=== PATIENT | male | born 1980 | race Caucasian/White ===

== ENCOUNTER 2025-01-05 18:40 | Emergency (ER) | payer OTHER, SELFPAY ==
[2025-01-05 18:42] VITALS: BP 134/94
[2025-01-05 19:06] VITALS: BMI 34.7
--- NOTE | 2025-01-05 19:08 | ED.GENMED ---
History of Present Illness
General
Chief Complaint: Abdominal Pain
Source: patient
Exam Limitations: none
Time Seen by Provider: 01/05/25 18:56
Nursing documentation reviewed up to this point in time: agreed with
History of Present Illness
History of Present Illness:
44-year-old male with history of hypertension presents to the ER for evaluation of abdominal pain. Patient reports symptoms have been ongoing for a little over a week but much worse over the past day or 2. He reports pain in the periumbilical
region radiates diffusely. No clear triggering or relieving factors noted. Describes the pain as cramping in quality. He has some mild nausea but no vomiting. Denies any diarrhea or constipation. Denies any urinary symptoms. Denies fever or
chills. He denies similar symptoms in the past. He denies any alcohol use.
Review of Systems
Review of Systems
All Other Systems: ROS reviewed and negative except as documented in HPI and ROS
Constitutional: Denies fever or chills
Respiratory: Denies trouble breathing
Cardiac: Denies chest pain
ABD/GI: Reports abdominal pain and nausea; Denies vomiting, diarrhea or constipated
: Denies dysuria, frequency or flank pain
Musculoskeletal: Denies neck pain or back pain
Neurological: Denies dizzy or headache
Phy Exam
Physical Exam
Physical Exam:
General: Awake, alert, oriented x3; no acute distress
Head: Normocephalic, atraumatic
Eyes: Conjunctiva normal, sclera anicteric
Throat: Airway intact, handling secretions
Neck: Trachea midline, supple without meningismus
Lungs: Clear to auscultation bilaterally, no wheezing, rales, rhonchi
Heart: Regular rate and rhythm, no murmurs, gallops, or rubs
Abd: Soft, non distended, tender to palpation in the periumbilical region with no palpable masses
Neuro: Grossly intact, ambulatory
Skin: no rash in area of concern
Extremities: Warm well-perfused
Scores
Heart Failure Risk
Heart Failure Risk Score: Not Applicable
Heart Score for Chest Pain Patients
STEMI patient?: Not applicable
Withdrawal Assessment of Alcohol
Withdrawal Assessment Completed?: Not applicable
Course
Orders/Labs/Results
Orders:
Orders
01/05/25 18:56
Electrocardiogram (*1) Urgent
Reason for Study: Abdominal Pain
EKG- Treatment ONCE
01/05/25 19:07
CT Abd/pelvis W Iv Cont Urgent
Comment:
Reason For Exam: periumbilical abd pain and tenderness
01/05/25 19:08
Complete Blood Count/With Diff Urgent
Comprehensive Metabolic Panel Urgent
Lipase Urgent
Urinalysis Reflex To Culture Urgent
Date Specimen was Collected: 01/05/25
Time Specimen was Collected: 19:07
0.9% Sodium Chloride 500 ml [Nss] 500 ml IV BOLUS
Ketorolac [Toradol] 15 mg IV NOW STA
01/05/25 21:57
Pantoprazole [Protonix IV] 40 mg IV NOW STA
01/05/25 21:59
Mag Hydrox/Al Hydrox/Simeth [Maalox] 30 ml Phenobarb/Hyoscy/Atropine/Scop [] 10 ml Viscous Lidocaine 2% [Xylocaine Viscous Cup] 10 ml PO NOW
Abnormal Lab Results
01/05/25
19:08
Neutrophils % 77.1 H %
(42.2-75.2)
Lymphocytes % 15.1 L %
(20.5-51.1)
ALT 78 H U/L
(0-50)
Total Protein 8.6 H g/dl
(6.3-8.2)
Albumin 5.4 H g/dl
(3.5-5.0)
01/05/25 19:08
01/05/25 19:08
Vital Signs
Initial and Last Documented VS:
Initial Vital Signs
Temp Pulse Resp BP Pulse Ox
37.5 C 122 18 134/94 98
01/05/25 18:42 01/05/25 18:42 01/05/25 18:42 01/05/25 18:42 01/05/25 18:42
Last Documented Vital Signs
Temp Pulse Resp BP Pulse Ox
37.5 C 83 21 123/79 97
01/05/25 18:42 01/05/25 21:00 01/05/25 21:00 01/05/25 21:00 01/05/25 21:00
MDM/Problems Addressed
Differential Diagnosis Includes:
Gastritis/PUD, diverticulitis, bowel obstruction, pancreatitis, cholelithiasis/cholecystitis, appendicitis, UTI/nephrolithiasis
MDM/Problems Addressed:
44-year-old male presents for evaluation of abdominal pain as described above. Tachycardic but otherwise normal vitals. Physical exam as noted. Will check labs including a CBC and a CMP, lipase, urinalysis. Check CT abdomen pelvis. Fluids and
pain control. Reassess after the above.
Labs reviewed: CBC unremarkable, CMP no clinically significant abnormalities. Urinalysis bland. CT shows no acute abnormalities�there was constipation but patient reports normal bowel movements low suspicion that symptoms are from constipation.
Suspect this may be PUD. Plan to trial PPI and Carafate. Advised regarding dietary adjustments. Stable for discharge with GI referral. Patient comfortable with this plan. All questions answered.
*Radiology
Radiology exam reviewed: radiology read reviewed
*Pulse Oximetry
SaO2: 98
Oxygen Mode of Delivery: Room air
Patient hypoxic: no (98%)
*EKG
Interpreted by ED Provider?: Yes
Heart Rate: 103
Rate: tachycardiac
Rhythm: sinus
[place]: normal axis
Interval: normal interval and normal QT interval
QRS Pattern: normal QRS
Ischemia: no ischemia
*Critical Care Note
Total Time (30-74mins, 75-104mins- exclusive of procedures): Not Applicable
Data Reviewed
Source: patient
ED Attending Note
-
Portions of this chart may have been created with voice recognition software.� Occasional wrong word or��sound alike� substitutions may have occurred due to the inherent limitations of voice recognition software.
Discharge Plan
Departure
Patient Disposition: Home (Routine Discharge)
Date of Disposition: 01/05/25
Time of Disposition: 21:57
Patient with high blood pressure during this ER visit?: Yes
Discharge Problem:
Abdominal pain
Instructions: Peptic ulcers
Prescriptions:
New
pantoprazole 40 mg tablet,delayed release (DR/EC)
40 mg PO DAILY Qty: 30 0RF
sucralfate [Carafate] 1 gram tablet
1 g PO ACHS Qty: 60 0RF
Referrals:
Nicolas Matos MD [Active, Gastroenterology] - Call in 1-3 days for appt
Activity Restrictions/Additional Instructions:
Thank you for visiting the Emergency Department at [facility].
1. Please schedule a follow up appointment as directed. Call first thing tomorrow morning to make an appointment.
2. If indicated, please take your medications as instructed and indicated on discharge paperwork.
3. If any of your symptoms do not improve, or persist, or become more severe within 6-12 hours, please return to the emergency department for further care.
4. Please return to the emergency department if you develop a headache, neck pain/stiffness, fever greater than 100.4F, chest pain, shortness of breath, persistent nausea, vomiting, slurred speech, difficulty walking, numbness/tingling, weakness,
signs of infection or any other symptoms that are worrisome to you.
Please call [phone] if you have any questions.
Interventions
Interventions:
*Risk Screen - Suicide Last Done: 01/05/25 18:42
*General Assessment Last Done: 01/05/25 18:42
*Neglect/Abuse Screening Last Done: 01/05/25 19:06
*ED- Fall Risk Assessment Last Done: 01/05/25 19:06
*ED COVID-19 Vaccine History Last Done: 01/05/25 19:06
*ED Influenza Vaccine History Last Done: 01/05/25 19:06
AV-Pagpgl-Ntwebijlua Assessment Last Done: 01/05/25 19:21
Discharge Date and Time
Print Language: GERMAN
[2025-01-05] MEDS: TORADOL 15 MG IV (19:15)
[2025-01-05] MEDS: NSS 500 IV (19:16)
[2025-01-05 19:19] VITALS: BP 133/93
[2025-01-05 19:26] LABS: Hematocrit 45.2 % (39.0-52.0); Hemoglobin 15.2 g/dL (13.0-18.0); Mean Corp Hgb Conc. 33.6 g/dL (33.0-37.0); Mean Corpuscular Volume 82.0 fL (80.0-94.0); Nucleated Red Blood Cells % 0 % (-); Platelet Count 204 10^3/uL (130-400); Red Cell Dist. Width 12.5 % (11.5-14.5); Urine Character Clear (Clear)
[2025-01-05 19:57] LABS: ALT (SGPT) 78 U/L (0-50); AST (SGOT) 45 U/L (17-59); Albumin 5.4 g/dl (3.5-5.0); Alkaline Phosphatase 55 U/L (38-126); Blood Urea Nitrogen 16 mg/dl (9-20); Calcium 10.2 mg/dl (8.4-10.2); Carbon Dioxide 28 mmol/L (22-30); Chloride 99 mmol/L (98-107); Estimated Creatinine Clearance > 125 ml/min; Glucose 91 mg/dl (70-99); Lipase 115 U/L (23-300); Potassium 4.2 mmol/L (3.5-5.1); Sodium 139 mmol/L (135-145); Total Protein 8.6 g/dl (6.3-8.2); eGFR > 60.00
[2025-01-05 20:00] VITALS: BP 138/105
[2025-01-05 21:00] VITALS: BP 123/79
[2025-01-05 22:00] VITALS: BP 127/88
[2025-01-05] MEDS: PROTONIX IV 40 MG IV (22:10)
[2025-01-05] MEDS: MAALOX 50 PO (22:10)
== END 2025-01-05 22:48 | disposition home or self-care (01) ==
LOC: EMR 18:40
PROVIDERS: EMERGENCY PHYSICIAN Emergency Medicine
DX: R10.33 Periumbilical pain (principal); I10 Essential (primary) hypertension
CPT/HCPCS: 99284; 96374; 96375; 74177; 80053; 81003; 83690; 85025; 93005; Q9967